=== PATIENT | female | born 1995 | race African-American/Black ===

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

== ENCOUNTER 2017-01-16 13:26 | Emergency (ER) | payer OTHER, MEDICAID ==
[~2017-01-16] VITALS: Ht 162.6 cm; Wt 129.0 kg
[2017-01-16 13:33] VITALS: BP 138/88; PULSE 74; RESP 16; TEMP 98.1; O2SAT 100
[2017-01-16] MEDS ORDERED: IBUPROFEN 600 MG TAB PO ONE (14:15)
--- NOTE | 2017-01-16 14:22 | PD ---
HPI Chief Complaint: Injury Time Seen by Provider: 14:03 Travel History International Travel<30 days: No Contact w/Intl Traveler<30days: No Traveled to known affect area: No History of Present Illness HPI Patient is a 21-year-old female who comes in after she tripped and fell at work. She says the handle the mop bucket went into her side. She is complaining of pain underneath her left arm. She says she also fell and her left knee. She was able to walk right afterwards. She denies hitting her head. She denies any neck or back pain. She denies any chest pain or shortness of breath. PFSH Past Medical History ADHD: No Bipolar Disorder: Yes Depression: Yes Cancer: No Cardiovascular Problems: No Developmental Delay: No Diabetes: No Diminished Hearing: No Headaches: Yes Psychiatric: Yes (Mood DO ) Immunizations Current: Yes Migraines: Yes Seizures: No Thyroid Disease: No Ulcer: No Tetanus Vaccination: > 5 Years Influenza Vaccination: No ?: Not LMP: 11/26/2016, irregular : 0 Para: 0 Miscarriage: 0 : 0 Past Surgical History Surgical History: No Previous Surgery Other Surgery: No Social History Alcohol Use: No Tobacco Use: No Substance Use: No Allergies-Medications (Allergen,Severity, Reaction): Coded Allergies: No Known Allergies (Unverified , 01/16/17) Reported Meds & Prescriptions Reported Meds & Active Scripts Active No Active Prescriptions or Reported Medications Review of Systems General / Constitutional: No: Fever, Chills HENT: No: Headaches, Lightheadedness Cardiovascular: No: Chest Pain or Discomfort Respiratory: No: Shortness of Breath Gastrointestinal: No: Nausea, Vomiting, Abdominal Pain Genitourinary: No: Dysuria Musculoskeletal: Positive: Pain, No: Limited ROM Skin: No Rash, No Change in Pigmentation Neurologic: Positive: Paresthesia, No: Weakness, Dizziness Physical Exam Narrative GENERAL: Awake and alert, in no acute distress. SKIN: Focused skin assessment warm/dry. HEAD: Atraumatic. Normocephalic. EYES: Pupils equal and round. No scleral icterus. Extraocular movements intact. ENT: No nasal bleeding or discharge. Mucous membranes pink and moist. NECK: Trachea midline. No JVD. No cervical spine tenderness. CARDIOVASCULAR: Regular rate and rhythm. No murmur appreciated. RESPIRATORY: No accessory muscle use. Clear to auscultation. Breath sounds equal bilaterally. MUSCULOSKELETAL: No obvious deformities. No clubbing. No cyanosis. No edema. Tender to palpation of left axilla as well as left chest wall. Tender to palpation of left anterior patella. Full range of motion of the shoulder and knee. Pulses intact. NEUROLOGICAL: Awake and alert. No obvious cranial nerve deficits. Motor grossly within normal limits. Normal speech. Data Data Last Documented VS Vital Signs Date Time Temp Pulse Resp B/P Pulse Ox O2 Delivery O2 Flow Rate FiO2 01/16/17 15:15 16 01/16/17 13:33 98.1 74 138/88 100 Orders Ribs, Uni (W/Exp Cxr-Min 3vw) (01/16/17 ) Knee, Complete (4vws) (01/16/17 ) Ibuprofen (Motrin) (01/16/17 14:15) MDM Medical Decision Making Medical Screen Exam Complete: Yes Emergency Medical Condition: Yes Medical Record Reviewed: Yes Differential Diagnosis Contusion versus muscle strain versus fracture Narrative Course Patient is a 21-year-old female comes in after she tripped and fell today. Exam shows tenderness to the left Rib cage. X-rays performed of the left ribs as well as left knee. Given ibuprofen for pain. She denies any chance of . XR shows no acute abnormalities. Patient advised to apply ice and take Ibuprofen or Tylenol as needed for pain. Advised to follow up with her doctor. Advised to return to the ED as needed for any worsening symptoms. Diagnosis Primary Impression: Musculoskeletal pain Additional Impression: Contusion Qualified Code: S20.212A - Contusion of left front wall of thorax, initial encounter Patient Instructions: Contusion in Adults (ED), General Instructions, Musculoskeletal Pain (ED) Additional Instructions: Apply ice to the affected area as needed for pain. Take Tylenol or ibuprofen as needed for pain. Follow-up with her doctor. Return to the emergency department as needed for any worsening symptoms. Scripts No Active Prescriptions or Reported Meds Disposition: 01 DISCHARGE HOME Condition: Stable Niru Carpio MD Jan 16, 2017 14:22
--- NOTE | 2017-01-16 15:08 | RADRPT ---
EXAM DATE/TIME: 01/16/2017 14:20 [facility] COMPARISON: No previous studies available for comparison. INDICATIONS : Left side rib pain after falling at work MEDICAL HISTORY : None. SURGICAL HISTORY : None. ENCOUNTER: Initial ACUITY: 1 day PAIN SCORE: 9/10 LOCATION: Left upper ribs FINDINGS: Multiple views of the left ribs were performed. There is no evidence of displaced fracture. No dest ructive lesions or areas of periosteal thickening are seen. Expiratory view of the chest is negative for pneumothorax. The mediastinal structures are midline. CONCLUSION: Negative for displaced rib fracture. Polo Mcguire MD FACR on January 16, 2017 at 15:05 Board Certified Radiologist. This report was verified electronically.
--- NOTE | 2017-01-16 15:11 | RADRPT ---
EXAM DATE/TIME: 01/16/2017 14:39 [facility] COMPARISON: No previous studies available for comparison. INDICATIONS : Left knee pain after falling at work MEDICAL HISTORY : None. SURGICAL HISTORY : None. ENCOUNTER: Initial ACUITY: 1 day PAIN SCORE: 10/10 LOCATION: Left anterior knee FINDINGS: Small joint effusion is evident. Alignment anatomic. Fractures are appreciated. Minimal degenerati ve changes are present in the medial compartment. CONCLUSION: Trace joint effusion, minimal degenerative changes medial compartment. Polo Mcguire MD FACR on January 16, 2017 at 15:08 Board Certified Radiologist. This report was verified electronically.
[2017-01-16 15:15] VITALS: RESP 16
== END 2017-01-16 15:35 | disposition home or self-care (01) ==
LOC: PHED 13:26
DX: M79.1 Myalgia (principal); S20.212A Contusion of left front wall of thorax, initial encounter; W01.0XXA Fall on same level from slipping, tripping and stumbling without subsequent striking against object, initial encounter; Y99.0 Civilian activity done for income or pay
CPT/HCPCS: 71101; 73564; 99284

== ENCOUNTER 2017-08-06 19:40 | Emergency (ER) | payer SELFPAY ==
[~2017-08-06] VITALS: Ht 167.6 cm; Wt 134.7 kg
[2017-08-06 20:38] VITALS: BP 141/80; PULSE 85; RESP 20; TEMP 99.1; O2SAT 97
[2017-08-06] MEDS ORDERED: PENI500T PO (21:20)
[2017-08-06] MEDS ORDERED: MEDR4PAK PO (21:20)
--- NOTE | 2017-08-06 21:20 | PD ---
HPI Chief Complaint: ENT Complaint Time Seen by Provider: 21:11 Travel History International Travel<30 days: No Contact w/Intl Traveler<30days: No Traveled to known affect area: No History of Present Illness HPI The patient is a 21-year-old Susie female who presents to the emergency department for 3 days of sore throat, anterior neck swelling, and pain with swallowing. Patient has subjective fevers with chills and sweats. The patient did take [id number] medication with minimal relief of her symptoms. The patient does state it is painful and difficult to swallow secondary to swelling in the posterior aspect of the throat. She also notes anterior cervical lymphadenopathy which is tender. She does complain of mild nausea without any vomiting, diarrhea, or abdominal pain. She denies any dysuria. She denies any significant myalgias or arthralgias. Duration is been 3 days, symptoms are moderate, there are no current alleviating factors. PFSH Past Medical History ADHD: No Bipolar Disorder: Yes Weight (Kg): 1 Depression: Yes Cancer: No Cardiovascular Problems: No Developmental Delay: No Diabetes: No Diminished Hearing: No Headaches: Yes Psychiatric: Yes (Mood DO ) Immunizations Current: Yes Migraines: Yes Seizures: No Thyroid Disease: No Ulcer: No Tetanus Vaccination: < 5 Years Influenza Vaccination: No ?: Not LMP: 06/27/17 : 0 Para: 0 Miscarriage: 0 : 0 Past Surgical History Surgical History: No Previous Surgery Other Surgery: No Social History Alcohol Use: No Tobacco Use: No Substance Use: No Allergies-Medications (Allergen,Severity, Reaction): Coded Allergies: No Known Allergies (Unverified Adverse Reaction, Unknown, 08/06/17) Reported Meds & Prescriptions Reported Meds & Active Scripts Active No Active Prescriptions or Reported Medications Review of Systems Except as stated in HPI: all other systems reviewed are Neg General / Constitutional: Positive: Fever, Chills HENT: Positive: Sore Throat, Congestion, Neck Pain Cardiovascular: No: Chest Pain or Discomfort Respiratory: No: Cough Gastrointestinal: Positive: Nausea, No: Vomiting, Diarrhea, Abdominal Pain Genitourinary: No: Dysuria Musculoskeletal: No: Myalgias Physical Exam Narrative GENERAL: Awake, alert, pleasant 21-year-old female who appears her stated age and is in no acute respiratory distress. SKIN: Focused skin assessment warm/dry. HEAD: Atraumatic. Normocephalic. EYES: Pupils equal and round. No scleral icterus. No injection or drainage. ENT: No nasal bleeding or discharge. Oropharynx reveals enlarged tonsils bilaterally with erythema and exudate. TMs are translucent. EACs are clear. NECK: Trachea midline. No JVD. Bilateral anterior cervical lymphadenopathy mobile but tender. CARDIOVASCULAR: Regular rate and rhythm. No murmur appreciated. RESPIRATORY: No accessory muscle use. Clear to auscultation. Breath sounds equal bilaterally. GASTROINTESTINAL: Abdomen soft, non-tender, nondistended. No rebound tenderness. MUSCULOSKELETAL: No obvious deformities. No clubbing. No cyanosis. No edema. NEUROLOGICAL: Awake and alert. No obvious cranial nerve deficits. Motor grossly within normal limits. Normal speech. PSYCHIATRIC: Appropriate mood and affect; insight and judgment normal. Data Data Last Documented VS Vital Signs Date Time Temp Pulse Resp B/P (MAP) Pulse Ox O2 Delivery O2 Flow Rate FiO2 08/06/17 20:38 99.1 85 20 141/80 (100) 97 MDM Medical Decision Making Medical Screen Exam Complete: Yes Emergency Medical Condition: Yes Medical Record Reviewed: Yes Differential Diagnosis Differential diagnosis includes tonsillitis, pharyngitis, viral pharyngitis, URI , mononucleosis, influenza, viral syndrome. Narrative Course The patient's physical examination is consistent with exudative tonsillitis. The patient will be placed on Medrol Dosepak, Pen-Vee K, is advised to alternate Tylenol and Motrin for pain and fever. Plenty fluids to stay hydrated. Work excuse for 2 days. Follow-up with a primary physician. Diagnosis Primary Impression: Exudative tonsillitis Patient Instructions: General Instructions Additional Instructions: Medications as directed. Follow-up with her primary physician. Return if symptoms worsen or progress. Work excuse for 2 days. Alternate Tylenol and Motrin for pain and fever. Plenty of fluids to stay hydrated. Med/Other Pt SpecificInfo: Prescription(s) given Scripts Methylprednisolone Dosepak (Medrol Dosepak) 4 Mg Dspk 4 MG PO DIRECTED, #1 DSPK 0 Refills Per Pharmacist direction Prov: Kamran Rawls MD 08/06/17 Penicillin V Potassium (Penicillin V Potassium) 500 Mg Tab 500 MG PO Q6H for Infection for 10 Days, #40 TAB 0 Refills Prov: Kamran Rawls MD 08/06/17 Disposition: 01 DISCHARGE HOME Condition: Stable Kamran Rawls MD Aug 06, 2017 21:20
== END 2017-08-06 21:36 | disposition home or self-care (01) ==
LOC: PHEFT 19:40
DX: J03.90 Acute tonsillitis, unspecified (principal); R50.9 Fever, unspecified; R59.0 Localized enlarged lymph nodes; R11.0 Nausea; Z86.59 Personal history of other mental and behavioral disorders; Z86.69 Personal history of other diseases of the nervous system and sense organs
CPT/HCPCS: 99283